=== PATIENT | female | born 1955 | race Caucasian/White ===

== ENCOUNTER → 2017-09-13 | Outpatient (CLI) | payer OTHER, BC ==
[~2017-09-13] VITALS: Ht 170.2 cm; Wt 111.1 kg
[~2017-09-13] MED LIST: ADVAIR 250-501 EACH INH; AMARYL4 MG PO; ASPIR 8181 MG PO; AVELOX 400 MG400 MG PO; BACLOFEN; BACLOFEN 10MG T10 MG PO; BUDESONIDE0.5 MG/2 M INH; CYMBALTA60 MG PO; DUONEB 2.5-0.5 M3 ML INH; FUROSEMIDE 20 M20 M1 PO; FUROSEMIDE 40 M40 M1 PO; GABAPENTIN; HYDROCODON-ACE1 EAC8 PO; LEVEMIR100 UNIT/1 SUBQ; LEXAPRO; LEXAPRO 10 MG T10 MG PO; LIPITOR; LIPITOR40 MG PO; LISINOPRIL; LISINOPRIL10 MG PO; LOPRESSOR100 M1 PO; METFORMIN HCL1000 MG PO; MUCINEX TA600 MG/TAB PO; NAPROSYN500 MG PO; NEURONTIN 300300 M1 PO; NICOTINE TRANSD21 M1 TRANSDERM; NOVOLIN N100 UNIT/1 SUBQ; OXYBUTYNIN 5 MG5 M2 PO; PREDNISONE 10 M10 M1 PO; SPIRIVA INH; SYMBICORT160 MCG/4. INH; TRAZODONE HCL50 MG PO; TRILEPTAL150 MG PO; VENTOLIN HFA 1818 GM INH
--- NOTE | ~2017-09-13 | HPC ---
[facility] [place] [address] PAIN MANAGEMENT CONSULTATION Name: YUN SCHULTZENNAUN VIVAR Room #: REG Liza Mauricio#: [id number] Admission: 09/13/17 Attend Phys: Rj Alejandro DO Discharge: Date of : 57 Report #: [id number] THIS REPORT FOR: //name// CC: Candis Alejandro DATE OF SERVICE: 09/13/2017 The patient is a 62-year-old female seen in consultation at the request of Dr. Helton for assistance with management of chronic axial and lumbar radicular pain. The patient has had multiple back surgeries including anterior cervical fusion and thoracic and lumbar fusion 2006 through 2007 all at [facility]. She states she has had chronic back pain since that time with right greater than left radicular symptoms. Pain radiates in the posterior thigh down to the knee. The pain is exacerbated with any and all axial loading. She has a fairly sedentary life, though she notes she does live with two of her daughters and she does most of the grocery shopping, food preparation and she does her own laundry. She does have subjective weakness in her legs, paresthesia in her anterior thighs. She denies bowel or bladder continence changes. She had been on higher dose hydrocodone 7.5/325 up to 6 a day, has weaned down to 2 a day. Tried physical therapy after multiple back surgeries, though the past 10 years, she really has done no coordinated exercise. Again, she does relate that she has a fairly "sedentary" existence. She describes pain as continuous, shooting, sharp and stabbing, rates anywhere from 7-9 on VAS. Pain impact score is fairly high, averaging about 40/70. REVIEW OF SYSTEMS: Complete review of systems attached to chart and gone over with the patient. She is . She has a 83-owmi-ldml smoking history. Rotated to e-cigarettes and nicotine gum several years ago. She does not drink alcohol to excess. Insulin-dependent diabetes, currently using metformin, glimepiride and NovoLog; Advair p.r.n. for some COPD; metoprolol, lisinopril, and Lasix for hypertension; Lipitor for dyslipidemia. Has some chronic anxiety, rotated to Cymbalta about 2 years ago with reasonable results. Uses gabapentin 300 mg 2 tablets 3 times a day, hydrocodone as noted in chief complaint 7.5 mg down to 2 a day and baclofen 10 mg t.i.d. for ongoing axial back pain and radicular pain. SURGICAL HISTORY: Includes the aforementioned cervical, thoracic and lumbar surgeries 10/2006 through 09/2007. The patient stopped working presently. She has been off work for 3 years. She is currently receiving disability income. PHYSICAL EXAMINATION: Reveals a 5-foot 7-inch, 240-pound female, BMI is 38.4 [place] [address] PAIN MANAGEMENT CONSULTATION Name: NAUN PAREKH Room #: REG LUIS ARMANDO Mauricio#: [id number] Admission: 09/13/17 Attend Phys: Rj Alejandro DO Discharge: Date of : 57 Report #: [id number] kilograms per meter squared. Blood pressure is 164/86, pulse 79, respiration 20. Cranial nerves 2-12 are grossly intact. Pupils equal, react to light and accommodation. Extraocular muscles are intact. There is no nystagmus. Lateral gaze deviation. She does have some eczema noted on the malar prominence. Thyroid is unremarkable. Cervical range of motion is fairly full. She has a well-healed anterior surgical scar compatible with anterior cervical disk fusion. Heart is regular rhythm without murmur. Lungs clear to auscultation. Has a markedly endomorphic build. Rises from chair using armrest, has an antalgic gait. Some mild ataxia. Right leg is demonstrably weaker than the left hip flexion, lower extremity extension and dorsiflexion, about 3/5 to all muscle groups tested versus perhaps 4/5 to all muscle groups tested on the left. Patellar reflexes are brisk, 2+/4 and symmetric. Achilles reflex 1/4 and symmetric. Straight leg raise negative. Diffuse tenderness across the low back. No discrete trigger points are noted. DIAGNOSTIC STUDIES: Most recent diagnostic studies I noted was MRI from 11/2015 of the lumbar spine noting laminectomy and suspected microdiskectomy changes at L4-L5. Slight enhancement along the posterior central disk margin within the laminectomy decompression, likely due to scar and granulation tissue, minimal broad-based left facet arthropathy resulting in abutment of the exiting left L4 nerve root (contralateral to primary right radicular symptoms). L5-S1 notes some mild facet arthropathy, slight abutment of the left L5 nerve root. ASSESSMENT: Symptomatic lower lumbar radiculopathy status post decompressive laminectomy, axial back pain with thoracolumbar spondylosis, status post cervical, thoracic and lumbar decompressive laminectomy. RECOMMENDATIONS: 1. Discussion with the patient today about therapeutic options. We elected to start a sodium channel membrane stabilizing agent, hopefully there will be some synergy with her calcium channel membrane stabilizing agent (gabapentin). I started Trileptal 150 mg 1 tablet at bedtime, gradually titrating to target dose of 1 in the morning, 2 at night. 2. We will get an MRI of the thoracic spine with and without contrast to see if the spinal cord stimulator is possible. We did talk at length about a spinal cord stimulator as possible therapeutic option to help manage axial back and lumbar radicular pain. This patient is status post multiple surgeries including thoracic, cervical and lumbar. Thanks for allowing me to participate in the patient's care. I will keep you abreast of her progress. <ELECTRONICALLY SIGNED> By: Rj Alejandro DO 09/15/17 [id number] Rj Alejandro DO /nt
[2017-09-13 09:38] VITALS: BP 164/86
== END ==
LOC: PAIN 08-30 07:27
DX: M47.25 Other spondylosis with radiculopathy, thoracolumbar region (principal); M96.1 Postlaminectomy syndrome, not elsewhere classified

== ENCOUNTER → 2017-10-04 | Outpatient (CLI) | payer OTHER, BC ==
[~2017-10-04] VITALS: Ht 170.2 cm; Wt 110.8 kg
[~2017-10-04] MED LIST changes: +CYMBALTA30 MG PO
--- NOTE | ~2017-10-04 | HPC ---
[facility] [place] [address] [place] [address] PAIN MANAGEMENT CONSULTATION Name: NAUN PAREKH GHAZALA Room #: REG LUIS ARMANDO Mauricio#: [id number] Admission: 10/04/17 Attend Phys: Rj Alejandro DO Discharge: Date of : 57 Report #: [id number] THIS REPORT FOR: //name// CC: Candis Alejandro HISTORY OF PRESENT ILLNESS: The patient is a 62-year-old female seen in consultation on 09/13/2017, diagnosed with lumbar radiculopathy status post decompressive laminectomy, axial back pain requiring complex medication management. The patient was continued on gabapentin. We trialed Trileptal 150 mg, titrated up to 1 in the morning, 2 at night. We talked about spinal cord stimulator as possible therapeutic option. I did order an MRI of the thoracic spine, which the patient did not get. She returns to pain clinic today noting that the Trileptal was tolerable; she is able to get up to 1 in the morning and 2 at night with no sequelae; however, it did not afford any improvement of her function. She still rates her pain as 7 on a VAS. She describes pain primarily in the back and bilateral legs. Pain is exacerbated with standing, walking and bending. She is desirous of weaning off hydrocodone. She has been taking up to 6 tablets a day. Presently, she is taking hydrocodone every 4-6 hours and Naprosyn 500 mg b.i.d., continuing gabapentin 300 mg 1 in the morning and 3 at night. I suggested she wean off the Trileptal by decreasing the way she had started, decreasing to 2 a day for several days, 1 a day for several days and then off altogether. PHYSICAL EXAMINATION: Shows a 62-year-old female, BMI is 38.2 kilograms per meter squared. Blood pressure 165/86, pulse 76, respirations 16. Subjective pain score is 7 on VAS. Rises from chair using armrest, modestly antalgic gait. Lower extremity strength is symmetric. Positive straight leg raise bilaterally, but patellar and Achilles reflexes are preserved. No focal loss is noted, though she does have ongoing lumbar radicular pain status post decompressive laminectomy. IMPRESSION AND RECOMMENDATION: Discussion with the patient today about therapeutic options. We reviewed MRI from 2015 noting prior laminectomy changes at L4-L5 with the scar tissue enhancement along the spine with scar and granulation tissue likely causing compromise of the nerve roots, left greater than right. We will seek authorization for bilateral transforaminal epidural injection at L4-L5 to help with acute lumbar radicular pain both through inflammation and to help with scar tissue. If this does not afford adequate relief, we again spent a good deal of time talking about spinal cord stimulator as a possible therapeutic option. We will see the patient at next visit for bilateral L4-L5 transforaminal epidural injection. In the interval, the patient thinks that Cymbalta at [address] [address] PAIN MANAGEMENT CONSULTATION Name: NAUN PAREKH Room #: REG CLLiza Mauricio#: [id number] Admission: 10/04/17 Attend Phys: Rj Alejandro DO Discharge: Date of : 57 Report #: [id number] a day has been helpful. We will provide a prescription for Cymbalta 30 mg to take once a week along with the 60 mg for a total dose of 90. If this helps, we will have her continue; if this does not help, we will increase to 120 mg for 1 month. If this does not help, we will move forward with bilateral L4-L5 transforaminal epidural injections and discuss spinal cord stimulator for the next visit. Discharged in good and stable condition. <ELECTRONICALLY SIGNED> By: Rj Alejandro DO 10/08/17 [id number] [id number] Rj Alejandro DO /nt
[2017-10-04 14:35] VITALS: BP 165/86
== END ==
LOC: PAIN 05:56
DX: M54.16 Radiculopathy, lumbar region (principal)